=== PATIENT | female | born 1995 | race Two or more races ===

== ENCOUNTER 2024-11-23 11:56 | Emergency (ER) | payer MEDICAID, SELFPAY ==
[2024-11-23 12:06] VITALS: BP 118/81; PULSE 67; RESP 16; TEMP 37; O2SAT 98; BMI 24.2
--- NOTE | 2024-11-23 12:11 | XR_ITS ---
Examination: Hand, right 3 views Technique: Hand AP, oblique, lateral 3 views Date and time of exam: November 23, 2024 1226 hours INDICATIONS: Patient fell downstairs today with injury to hand, hand pain FINDINGS: Congenitally shortened fifth metacarpal On the oblique view tiny chip fracture 1 mm off the base of the middle phalanx index finger, age indeterminate IMPRESSION: 1 mm chip fracture off the base of the middle phalanx second digit, age indeterminate
[2024-11-23] MEDS: IBUPROFEN TAB 600 MG TABLET PO (12:17)
--- NOTE | 2024-11-23 13:05 | PD.EDHAND ---
Upper Extremity Injury RME/HPI General Chief Complaint: Hand/Wrist Problems Stated Complaint: RIGHT HAND INJURY Time Seen by Provider: 11/23/24 12:03 Arrival date/time: 11/23/24 11:56 29-year-old female presents to the emergency department of complaints of contusion of the right hand patient reports she fell injuring the right hand. Patient ports no other injuries. Limitations: no limitations Related Data Previous Rx's ?Medication ?Instructions ?Recorded cefuroxime axetil 500 mg tablet 500 mg PO BID #14 tabs 12/04/22 ibuprofen 600 mg tablet 600 mg PO Q6H #30 tabs 11/23/24 Allergies Allergy/AdvReac Type Severity Reaction Status Date / Time No Known Allergies Allergy Verified 12/04/22 11:51 Review of Systems Review of Systems Systems Reviewed: All systems reviewed, normal except as documented Constitutional Constitutional: Reports system reviewed and no additional complaints, except as documented, Denies fever(s) and Denies headache(s) Eyes Eyes: Reports system reviewed and no additional complaints, except as documented and Denies blurry vision ENT Ears, Nose, Mouth, and Throat: Reports system reviewed and no additional complaints, except as documented, Denies headache(s), Denies nasal congestion and Denies nasal discharge Cardiovascular Cardiovascular: Reports system reviewed and no additional complaints, except as documented, Denies chest pain and Denies dyspnea Respiratory Respiratory: Reports system reviewed and no additional complaints, except as documented, Denies chest congestion, Denies cough and Denies dyspnea Gastrointestinal Gastrointestinal: Reports system reviewed and no additional complaints, except as documented and Denies abdominal pain Musculoskeletal Musculoskeletal: Reports system reviewed and no additional complaints, except as documented, Reports arthralgias (Right hand pain), Denies deformity and Denies numbness Integumentary/Breasts Skin/Breast: Reports system reviewed and no additional complaints, except as documented and Denies rash Neurologic Neurologic: Reports system reviewed and no additional complaints, except as documented, Reports as per HPI, Denies headache(s) and Denies numbness Past Medical History Past Medical History CARDIAC: Negative Congestive Heart Failure RESPIRATORY: Negative Chronic Obstructive Pulmonary Disease (COPD) GENITOURINARY: Negative Renal Disease ENDOCRINE: Negative Diabetes Mellitus Type 1 or Diabetes Mellitus Type 2 Social History SMOKING STATUS: Never smoker ED Exam General Limitations: Present no limitations General appearance: Present alert and in no apparent distress Head Head exam: Present atraumatic Eye Eye exam: Present normal appearance, PERRL and EOMI ENT ENT exam: Present normal exam, normal oropharynx and mucous membranes moist Neck Neck exam: Present normal inspection, full ROM and trachea midline Chest Chest inspection: Present normal inspection and symmetric chest wall rise Respiratory Respiratory exam: Present normal lung sounds bilaterally Cardiovascular Cardiovascular exam: Present regular rate, normal rhythm and normal heart sounds Abdominal Exam Abdominal exam: Present soft and normal bowel sounds Extremities Exam Extremities exam: Present full ROM, tenderness, normal capillary refill and joint swelling Back Exam Back exam: Present normal inspection and full ROM Neurological Exam Neurological exam: Present alert, oriented X3 and CN II-XII intact Psychiatric Psychiatric exam: Present normal affect and normal mood Skin Skin exam: Present warm, dry, intact and normal color Course Quality Measures none Orders Category Date Time Status XR hand comp RT min 3V Stat Exams 11/23/24 12:11 Completed Ibuprofen Tab [Motrin Tab] Med 11/23/24 12:11 Discontinued 600 mg PO X1 ONE Vital Signs Vital signs: Vital Signs Temperature 98.6 F 11/23/24 12:06 Pulse Rate 67 11/23/24 12:06 Respiratory Rate 16 11/23/24 12:06 Blood Pressure 118/81 11/23/24 12:06 Pulse Oximetry (%) 98 11/23/24 12:06 Oxygen Delivery Method Room Air 11/23/24 12:06 O2 saturation 98% room air within normal notes Extremity Injury MDM Narrative MDM Narrative:: 29-year-old female presents to the emergency department of complaints of contusion of the right hand patient reports she fell injuring the right hand. Patient ports no other injuries. Imaging of the right hand obtained no acute fracture dislocation noted Patient has no significant swelling no deformity CMS intact cap refill less than 2 seconds Patient discharged home in no distress to follow-up with primary care doctor in the next 24 to 48 hours and for any worsening symptoms to return to the ER immediately Patient data External records reviewed:: [facility] previous records Clinical information provided by:: patient Social determinants that could affect healthcare access:: none Patient has the following chronic illnesses:: None How is presenting disease/condition affected by chronic disease/condition?: no chronic disease Evaluation data The following diagnostics were reviewed and interpreted by me:: radiology exam(s) Lab and/or radiology exams considered but not ordered:: Radiology obtained Interpretation Summary: Reviewed by me Medications / Prescriptions Medications or Prescriptions considered but not ordered:: Given Medication administrations:: Medication Administration History Discontinued Medications Ibuprofen (Ibuprofen Tab 600 Mg Tablet) 600 mg PO X1 ONE Stop: 11/23/24 12:12 Last Admin: 11/23/24 12:17 Dose: 600 mg Documented By: BHAVNA Given Consultations Consultation(s) initiated? (list below): No Diagnosis Upper Extremity Injury Differential Diagnosis: fracture of hand and other (Hand contusion right) Most likely diagnosis given after review of the tests above:: Hand contusion right Admission Indicated Admission indicated?: not indicated Admission Request Was there a request for admission?: No Disposition Plan Disposition Plan: Discharge Discharge Attestation Discharge Attestation: The patient and all family members were given an opportunity to ask questions and understood the discharge instructions. Discharge instructions specifically effects, indications for sooner follow up or return to the emergency department, and the expected course of current diagnosis. Patient condition: Stable Discharge Plan Plan Patient Disposition: HOME (Self Care) Discharge Disposition comment: Stable Prescriptions/Referrals Prescriptions/Med Rec: New ibuprofen 600 mg tablet 600 mg PO Q6H Qty: 30 0RF No Action cefuroxime axetil 500 mg tablet 500 mg PO BID Qty: 14 0RF Referrals: Margarita Monique NP [Primary Care Provider] - 11/24/24 Problem List Clinical Impression: Contusion of hand, right Patient/Caregiver Discharge Instructions Education Materials: ED Hand Contusion Additional Instructions: Please follow up with your primary care doctor in the next 24-48hrs for any worsening symptoms return here immediately Print Language: Polish Stand Alone Forms: [place] Award Info., Work/School Release, Patient Portal Info Letter ELIDIA/DUNIA Supervising Physician ELIDIA/DUNIA Supervising Physician: Dr. estevez
== END 2024-11-23 13:13 | disposition home or self-care (01) ==
PROVIDERS: Emergency Provider Family Medicine; PCP Nurse Practitioner Family
DX: S60.221A Contusion of right hand, initial encounter (principal); W19.XXXA Unspecified fall, initial encounter
CPT/HCPCS: 73130; 99283; A9270